=== PATIENT | female | born 1970 ===

== ENCOUNTER 2019-08-27 19:53 | Emergency (ER) | payer BC ==
[~2019-08-27] VITALS: Ht 160 cm; Wt 84.4 kg
[2019-08-27 19:56] VITALS: BP 152/92
[2019-08-27] MEDS ORDERED: proparacaine 0.5% ophthalmic drops 15ml RIGHTEYE ONE (20:40)
== END 2019-08-27 21:10 | disposition home or self-care (01) ==
LOC: ER 19:56
DX: H11.31 Conjunctival hemorrhage, right eye (principal); R51 Headache; Z91.030 Bee allergy status; Z88.8 Allergy status to other drugs, medicaments and biological substances
CPT/HCPCS: 99282